=== PATIENT | female | born 1960 | race Hispanic/Latino ===

== ENCOUNTER 2018-01-21 07:30 | Emergency (ER) | payer BC ==
[2018-01-21 08:06] VITALS: BP 116/57
--- NOTE | 2018-01-21 09:29 | XRay Report ---
FINAL REPORT EXAM: XR HIPS BILAT 2V W/PELVIS HISTORY: fall/hip pain TECHNIQUE: Single view pelvis and 1 view both hips. PRIORS: None currently available. FINDINGS: PELVIS: Sacroiliac joints are unremarkable. There is no acute dislocation. There is no acute fracture. There is no evidence for healing fracture. There is no cortical destruction to suggest osteomyelitis. There are no suspicious osseous lesions. There are no radiopaque foreign objects. RIGHT HIP: Joint space narrowing. Subchondral bone is intact. No significant marginal osteophytes. There is no acute dislocation. There is no acute fracture. There is no evidence for healing fracture. There is no cortical destruction to suggest osteomyelitis. There are no suspicious osseous lesions. There are no radiopaque foreign objects. LEFT HIP: Joint space narrowing. Subchondral bone is intact. No significant marginal osteophytes. There is no acute dislocation. There is no acute fracture. There is no evidence for healing fracture. There is no cortical destruction to suggest osteomyelitis. There are no suspicious osseous lesions. There are no radiopaque foreign objects. IMPRESSION: No acute osseous findings. 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
--- NOTE | 2018-01-21 10:02 | Emergency Department Report ---
ED Back Pain/Injury HPI - General Chief Complaint: Back Pain/Injury Stated Complaint: BACK INJURY/PAIN Time Seen by Provider: 01/21/18 09:59 Source: patient Limitations: No Limitations - History of Present Illness Complaint: back pain -: Sudden, days(s) (3) Similar Symptoms Previously: No Place: home Severity: mild Quality: dull Consistency: constant Improves With: none Worsens With: none Context: fall (glf), other (while walking dog) Associated Symptoms: denies other symptoms. denies: confusion, weakness, chest pain, numbness, difficulty walking, cough, difficulty urinating, diaphoresis, incontinence, fever/chills, constipation, headaches, abdominal pain, loss of appetite, malaise, nausea/vomiting, seizure, shortness of breath, syncope, other - Related Data Home Medications Medication Instructions Recorded Confirmed Last Taken Cimetidine [Acid Touch Up Carver] 150 mg PO DAILY 10/01/13 02/08/14 02/08/14 09:00 Phenylephrine/Diphenhydramine [Eq 1 tab PO DAILY 10/01/13 02/08/14 02/07/14 Allergy & Sinus Relief Tab] ALBUTEROL NEB's [Proventil 0.083%] 2.5 mg IH TID PRN 02/08/14 02/08/14 02/08/14 19:00 Cyclobenzaprine [Flexeril 10mg] 10 mg PO HS 02/08/14 02/08/14 02/07/14 21:00 oxyCODONE /ACETAMINOPHEN [Percocet 1 tab PO BID 02/08/14 02/08/14 02/08/14 07:00 5/325] Previous Rx's Medication Instructions Recorded Last Taken Type Albuterol Sulfate [Ventolin HFA] 2 puff IH Q4H PRN #30 hfa.[email or web address] 11/12/1302/08 09:00 Rx Atenolol [Tenormin] 25 mg PO DAILY #60 tablet 11/12/13 02/08/14 09:00 Rx Lisinopril/Hydrochlorothiazide 1 tab PO QDAY #30 tablet 02/08/14 Unknown Rx [Zestoretic 20-12.5 mg] Terbinafine HCl [Terbinafine] 15 gm TP BID #1 cream..g. 06/18/15 Unknown Rx Ibuprofen [Motrin] 400 mg PO Q8H PRN #30 tablet 01/21/18 Unknown Rx Allergies Allergy/AdvReac Type Severity Reaction Status Date / Time codeine Allergy Unknown Verified 01/13/13 09:11 ondansetron HCl [From Zofran] AdvReac Vomiting Verified 06/15/13 02:06 Penicillins AdvReac Rash Verified 01/13/13 09:11 ED Review of Systems ROS: Stated complaint: BACK INJURY/PAIN Other details as noted in HPI Comment: All other systems reviewed and negative Respiratory: no symptoms reported Musculoskeletal: back pain (low bp sp glf 3 d ago. ambulatory w no neuro def) Skin: denies: rash, lesions Neurological: denies: headache, weakness, numbness, paresthesias, confusion, abnormal gait, vertigo Psychiatric: denies: anxiety, depression ED Past Medical Hx - Past Medical History Hx Hypertension: Yes Hx Congestive Heart Failure: No Hx Diabetes: No Hx Renal Disease: (kidney stones) Hx Headaches / Migraines: Yes Hx Kidney Stones: Yes Hx Asthma: Yes (last attack 1 week ago) Hx COPD: No Additional medical history: kidney stones - Surgical History Past Surgical History?: No Additional Surgical History: TONSILS AND ANKLE. surgery for kidney stones - Social History Smoking Status: Never Smoker - Medications Home Medications: Home Medications Medication Instructions Recorded Confirmed Last Taken Type Cimetidine [Acid Touch Up Carver] 150 mg PO DAILY 10/01/13 02/08/14 02/08/14 09:00 History Phenylephrine/Diphenhydramine [Eq 1 tab PO DAILY 10/01/13 02/08/14 02/07/14 History Allergy & Sinus Relief Tab] Albuterol Sulfate [Ventolin HFA] 2 puff IH Q4H PRN #30 hfa.aer.ad 11/12/1302/0802/08/14 09:00 Rx Atenolol [Tenormin] 25 mg PO DAILY #60 tablet 11/12/13 02/08/14 02/08/14 09:00 Rx ALBUTEROL NEB's [Proventil 0.083%] 2.5 mg IH TID PRN 02/08/14 02/08/14 02/08/14 19:00 History Cyclobenzaprine [Flexeril 10mg] 10 mg PO HS 02/08/14 02/08/1414 21:00 History Lisinopril/Hydrochlorothiazide 1 tab PO QDAY #30 tablet 02/08/14 Unknown Rx [Zestoretic 20-12.5 mg] oxyCODONE /ACETAMINOPHEN [Percocet 1 tab PO BID 02/08/14 02/08/14 02/08/14 07: 00 History 5/325] Terbinafine HCl [Terbinafine] 15 gm TP BID #1 cream..g. 06/18/15 Unknown Rx Ibuprofen [Motrin] 400 mg PO Q8H PRN #30 tablet 01/21/18 Unknown Rx ED Physical Exam - General Limitations: No Limitations General appearance: alert, in no apparent distress - Head Head exam: Present: atraumatic - Eye Eye exam: Present: normal appearance, EOMI Pupils: Present: normal accommodation - ENT ENT exam: Present: mucous membranes moist - Neck Neck exam: Present: normal inspection, full ROM - Respiratory Respiratory exam: Present: normal lung sounds bilaterally - Cardiovascular Cardiovascular Exam: Present: regular rate - GI/Abdominal GI/Abdominal exam: Present: soft, normal bowel sounds - Extremities Exam Extremities exam: Present: normal inspection, full ROM, normal capillary refill. Absent: tenderness, pedal edema, joint swelling, calf tenderness - Back Exam Back exam: Present: normal inspection, full ROM. Absent: tenderness, CVA tenderness (R), CVA tenderness (L), muscle spasm, paraspinal tenderness, vertebral tenderness - Neurological Exam Neurological exam: Present: alert, altered, oriented X3, CN II-XII intact, normal gait. Absent: abnormal gait ED Course Vital Signs 01/21/18 01/21/18 08:03 11:31 Temperature 97 F L Pulse Rate 90 Respiratory 18 Rate Blood Pressure 116/57 O2 Sat by Pulse 97 Oximetry - Reevaluation(s) Reevaluation #1: 01/21/18 11:35 sp glf while walking dog 3 days ago ambulatory no neuro def no point tenderness no dysuria note allergy xray reordered lumbar xray completed medicated dc home follow up pcp motrin for pain ED Medical Decision Making - Radiology Data Radiology results: report reviewed, image reviewed - Differential Diagnosis acute back injury v arthritis Critical care attestation.: If time is entered above; I have spent that time in minutes in the direct care of this critically ill patient, excluding procedure time. ED Disposition Clinical Impression: Low back pain, Arthritis Disposition: DC- TO HOME OR SELFCARE Is pt being admited?: No Does the pt Need Aspirin: No Condition: Stable Instructions: Low Back Strain (ED) Additional Instructions: warm compresses motrin or tylenol for pain Prescriptions: Ibuprofen [Motrin] 400 mg PO Q8H PRN #30 tablet PRN Reason: Pain , Severe (7-10) Referrals: PRIMARY CARE, [Primary Care Provider] - 3-5 Days Time of Disposition: 11:31
[2018-01-21] MEDS ORDERED: TORADOL IM ONE (10:59)
--- NOTE | 2018-01-21 11:14 | XRay Report ---
FINAL REPORT EXAM: XR SPINE LUMBOSACRAL 2-3V HISTORY: BACK PAIN TECHNIQUE: AP, lateral and lumbosacral spot views of the lumbar spine. PRIORS: None. FINDINGS: There are five lumbar type vertebral bodies. Mild levoconvex curvature of the lumbar spine is seen. No spondylolisthesis. No compression fracture. The disc spaces are maintained. The paravertebral soft tissues are normal. Multilevel facet arthropathy is seen throughout the lumbar spine. IMPRESSION: Multilevel facet arthropathy of the lumbar spine. Mild levoconvex curvature of the lumbar spine.
== END 2018-01-21 12:07 | disposition home or self-care (01) ==
LOC: ED 07:30
DX: M54.5 Low back pain (principal); M19.90 Unspecified osteoarthritis, unspecified site; I10 Essential (primary) hypertension; J45.909 Unspecified asthma, uncomplicated; Z90.49 Acquired absence of other specified parts of digestive tract; Z79.899 Other long term (current) drug therapy; Z88.4 Allergy status to anesthetic agent; Z88.6 Allergy status to analgesic agent; Z88.0 Allergy status to penicillin
CPT/HCPCS: 72100; 73521; 96372; 99283; J1885

== ENCOUNTER 2021-10-06 08:26 | Outpatient (CLI) | payer BC ==
[2021-10-06 09:37] LABS: Basophils % (Auto) 0.8 % (0.0-1.8); Eosinophils # (Auto) 0.3 K/mm3 (0.0-0.4); Eosinophils % (Auto) 6.4 % (0.0-4.3); Hematocrit 37.4 % (30.3-42.9); Hemoglobin 12.5 gm/dl (10.1-14.3); Lymphocytes # (Auto) 2.2 K/mm3 (1.2-5.4); Lymphocytes % (Auto) 39.4 % (13.4-35.0); Mean Corpuscular HGB Conc 34 % (30-34); Mean Corpuscular Volume 88 fl (79-97); Monocytes # (Auto) 0.5 K/mm3 (0.0-0.8); Monocytes % (Auto) 8.8 % (0.0-7.3); Platelet Count 194 K/mm3 (140-440); Red Blood Count 4.24 M/mm3 (3.65-5.03); Red Cell Distribution Width 12.9 % (13.2-15.2)
[2021-10-06 09:51] LABS: INR 0.84 (0.87-1.13)
--- NOTE | 2021-10-08 12:00 | Electrocardiograph Report ---
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
== END 2021-10-06 08:27 | disposition home or self-care (01) ==
LOC: CARD 08:26
PROVIDERS: ATTEND Specialist
DX: M47.26 Other spondylosis with radiculopathy, lumbar region (principal)
CPT/HCPCS: 36415; 85025; 85610; 93005